=== PATIENT | male | born 1980 ===

== ENCOUNTER 2017-04-10 02:23 | Emergency (ER) | payer SELFPAY ==
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
[2017-04-10 02:32] VITALS: BMI 28.6
[2017-04-10 02:38] VITALS: BP 123/65; PULSE 112; RESP 18; O2SAT 98
[2017-04-10 02:39] VITALS: TEMP 98.3
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
== END 2017-04-10 04:25 | disposition left against medical advice (07) ==
LOC: ED 02:23
DX: S03.2XXA Dislocation of tooth, initial encounter (principal); Y08.89XA Assault by other specified means, initial encounter; Y93.9 Activity, unspecified; Y92.9 Unspecified place or not applicable